=== PATIENT | male | born 1955 | race Caucasian/White ===

== ENCOUNTER 2019-06-04 11:42 | Inpatient (IN) ==
[2019-06-04] MEDS ORDERED: Ipratropium/Albuterol Neb 3 ML IH ONE (11:56)
[2019-06-04] MEDS ORDERED: methylPREDNISolone 125 MG/2 ML VIAL IVP ONE (11:56)
[2019-06-04 12:06] LABS: ABG Base Excess 10 mEq/L (-2 to 3); ABG HCO3 37 mEq/L (21-27); ABG Oxygen Saturation 90 % (95-98); ABG PCO2 61 mmHg (35-45); ABG PO2 61 mmHg (85-104); ABG TCO2 39 mEq/L (20-26)
[2019-06-04 12:32] LABS: Basophils % 0.4 %; Eosinophils # 0.4 K/mcL (0.0-0.6); Eosinophils % 5.5 %; Hematocrit 34.9 % (37.5-50.1); Hemoglobin 11.5 g/dL (12.9-16.9); Immature Granulocytes % 0.1 % (0-4); Lymphocytes # 1.9 K/mcL (0.6-4.6); Lymphocytes % 25.3 %; Mean Corpuscular Hemoglobin 32.1 pg (28.0-33.3); Mean Corpuscular Volume 97.5 fL (83.0-100.0); Mean Platelet Volume 10.1 fL (9.4-12.4); Monocytes # 0.5 K/mcL (0.0-1.3); Monocytes % 6.5 %; Neutrophils # 4.6 K/mcL (1.6-8.9); Platelet Count 234 K/mcL (140-400); Red Blood Count 3.58 M/mcL (4.19-5.50); Segmented Neutrophils % 62.2 %; White Blood Count 7.4 K/mcL (4.3-11.1)
[2019-06-04 12:56] LABS: BUN/Creatinine Ratio 9 (6-26); Blood Urea Nitrogen 6 mg/dL (8-23); Calcium 8.9 mg/dL (8.6-10.3); Carbon Dioxide 33 mEq/L (23-29); Chloride 103 mEq/L (98-107); Glucose 110 mg/dL (70-105); Osmolality,Calculated 292 (280-300); Potassium 3.5 mEq/L (3.5-5.1); Sodium 142 mEq/L (136-145); Troponin I 0.04 ng/mL (< 0.04); eGFR For African Americans > 60 (> 60); eGFR For Non-African Americans > 60 (> 60)
[2019-06-04] MEDS ORDERED: Isovue-370 500 ML BOTTLE IVP ONE (13:24)
--- NOTE | 2019-06-04 14:59 | Emergency Department Note ---
Disposition Clinical Impression: Acute exacerbation of chronic obstructive airways disease Pulmonary embolism Qualifiers: Pulmonary embolism type: unspecified Chronicity: acute Acute cor pulmonale presence: without acute cor pulmonale Qualified Code(s): I26.99 - Other pulmonary embolism without acute cor pulmonale Respiratory failure Qualifiers: Chronicity: acute Respiratory failure complication: hypoxia and hypercapnia Qualified Code(s): J96.01 - Acute respiratory failure with hypoxia; J96.02 - Acute respiratory failure with hypercapnia Disposition: Admitted As Inpatient Condition: Fair Referrals: NONE,PCP [Primary Care Provider] - Forms: ED Satisfaction Letter Time of Disposition: 15:20 SOB HPI - General Chief Complaint: ED Shortness of Breath/Dyspnea Stated Complaint: SOB Time Seen by Provider: 06/04/19 11:54 Source: patient, EMS Limitations: physical limitation - History of Present Illness This is a 63-year-old gentleman who presents with a complaint of shortness of breath. Patient is a very poor historian and is not clear how long this had trouble breathing. He has a history of COPD. Patient apparently had a procedure done within the past few days. He does not know exactly what the procedure was and what hospital it was done at. However, he was prescribed Xareltofor DVT prophylaxis. Patient has not been taking the Xarelto. He has slight cough and congestion. He denies any chest pain. Pt Subjective Complaint: shortness of breath Improves with: nothing Worsens with: nothing Known history of: COPD - Related Data Home Medications Medication Instructions Recorded Confirmed Albuterol Sulfate 2.5 mg IH Q4H PRN 06/04/19 06/04/19 Albuterol Sulfate [Proair 90 mcg IH QID PRN 06/04/19 06/04/19 Respiclick] Amitriptyline [Elavil] 75 mg PO HS 06/04/19 06/04/19 Aspirin Enteric Coated [Aspirin EC] 81 mg PO DAILY 06/04/19 06/04/19 Atorvastatin [Lipitor] 40 mg PO HS 06/04/19 06/04/19 Carvedilol [Coreg] 6.25 mg PO BIDWM 06/04/19 06/04/19 Citalopram [CeleXA] 20 mg PO DAILY 06/04/19 06/04/19 Fluticasone/Umeclidin/Vilanter 1 inh IH DAILY 06/04/19 06/04/19 [Trelegy Ellipta 100-62.5-25] Furosemide [Lasix] 20 mg PO BID 06/04/19 06/04/19 Lisinopril 2.5 mg PO DAILY 06/04/19 06/04/19 OLANZapine [Zyprexa] 10 mg PO HS 06/04/19 06/04/19 Omeprazole [PriLOSEC] 40 mg PO DAILY 06/04/19 06/04/19 Rivaroxaban [Xarelto] 1 dose PO AD 06/04/19 06/04/19 Sucralfate [Carafate] 1 gm PO BID 06/04/19 06/04/19 Allergies Allergy/AdvReac Type Severity Reaction Status Date / Time No Known Allergies Allergy Verified 08/25/18 11:07 All systems ED: reviewed and negative except as stated. Constitutional: Denies: fever Cardiovascular: Denies: chest pain, palpitations Respiratory: Reports: cough, dyspnea Gastrointestinal: Denies: abdominal pain Past Medical History - Past Medical History Medical history: Reports: COPD Surgical history: Reports: non-contributory Psychiatric history: Reports: depression - Social History Smoking Status: Current every day smoker Smokeless Tobacco Status: No Alcohol use: Reports: none Drug use: Reports: none Physical Exam - General Limitations: physical limitation General appearance: alert, in distress - Head Head exam: atraumatic, normocephalic, normal inspection - Eye Eye exam: Present: normal appearance, PERRL, EOMI - Expanded Eye Exam Pupils: Left: reactive - ENT ENT exam: normal exam, normal oropharynx, mucous membranes moist - Expanded ENT Exam External ear exam: Present: normal external inspection Mouth exam: Present: normal external inspection Teeth exam: Present: normal inspection Throat exam: Present: normal inspection - Neck Neck exam: Present: normal inspection, full ROM, trachea midline - Chest Chest inspection: Present: normal inspection, symmetric chest wall rise - Respiratory Respiratory exam: Present: respiratory distress, wheezes, accessory muscle use - Cardiovascular Cardiovascular exam: Present: regular rate, normal rhythm, normal heart sounds, other (Bilateral peripheral edema.) - Abdominal Exam Abdominal exam: Present: soft, Non-Tender. Absent: tenderness, distention, guarding, rebound, rigidity - Extremities Exam Extremities exam: Present: normal inspection, full ROM, other (Patient has some bruising in his right inguinal area suggestive of right femoral vascular access for procedure. It is unclear what procedure he had. No bruits. No bleeding.). Absent: tenderness, pedal edema - Expanded Upper Extremity Exam Shoulder exam: Present: normal inspection, full ROM Arm exam: Present: normal inspection, full ROM Elbow exam: Present: normal inspection, full ROM Forearm/Wrist exam: Present: normal inspection, full ROM Hand exam: Present: normal inspection, full ROM Vascular exam: Normal: capillary refill, radial pulse - Expanded Lower Extremity Exam Hip/Pelvis exam: Present: normal inspection, full ROM Upper leg exam: Present: normal inspection, full ROM Knee exam: Present: normal inspection, full ROM Lower leg exam: Present: normal inspection, full ROM Ankle exam: Present: normal inspection, full ROM Foot/toe exam: Present: normal inspection, full ROM Neurovascular/Tendon exam: Absent: motor deficit, sensory deficit, tendon deficit - Back Exam Back exam: Present: normal inspection, full ROM. Absent: tenderness - Neurological Exam Neurological exam: Present: alert, oriented X3 - Expanded Neurological Exam Patient oriented to: Present: person, place, time Coma Scale Eye Opening: Spontaneous Coma Scale Motor Response: Obeys Commands Coma Scale Verbal Response: Oriented Coma Scale Total: 15 - Psychiatric Psychiatric exam: Present: normal affect, normal mood - Skin Skin exam: Present: warm, dry, intact, normal color Course Vital Signs O2 Sat by Pulse Oximetry 83 06/04/19 11:44 Temperature 98.8 F 06/04/19 11:48 Pulse Rate 86 06/04/19 12:59 Respiratory Rate 20 06/04/19 12:25 Blood Pressure 139/83 06/04/19 12:59 O2 Sat by Pulse Oximetry 98 06/04/19 12:59 Oxygen Delivery Oxygen Delivery Nasal Cannula Shortness of Breath/Dyspnea - MDM Narrative Medical decision making narrative: Differential diagnosis includes pulmonary embolus versus COPD exacerbation versus pneumonia versus CHF. 1502 Patient is doing well. Once again he has not been taking Xarelto. Given bilateral pulmonary emboli, and I will start him on heparin protocol. 1520 The patient's care discussed with the hospitalist service. We will admit. - Lab Data Result diagrams: 06/04/19 12:16 06/04/19 12:16 Lab Results 06/04/19 06/04/19 06/04/19 Range/Units 12:03 12:16 12:16 WBC 7.4 (4.3-11.1) K/mcL RBC 3.58 L (4.19-5.50) M/mcL Hgb 11.5 L (12.9-16.9) g/dL Hct 34.9 L (37.5-50.1) % MCV 97.5 (83.0-100.0) fL MCH 32.1 (28.0-33.3) pg MCHC 33.0 (31.6-35.5) g/dL RDW 14.0 (11.5-14.5) % Plt Count 234 (140-400) K/mcL MPV 10.1 (9.4-12.4) fL Immature Gran % 0.1 (0-4) % Seg Neutrophils % 62.2 % Lymphocytes % 25.3 % Monocytes % 6.5 % Eosinophils % 5.5 % Basophils % 0.4 % Neutrophils # 4.6 (1.6-8.9) K/mcL Lymphocytes # 1.9 (0.6-4.6) K/mcL Monocytes # 0.5 (0.0-1.3) K/mcL Eosinophils # 0.4 (0.0-0.6) K/mcL Basophils # 0.0 (0.0-0.2) K/mcL Sample Site L Radial ABG pH 7.40 (7.32-7.45) pH Units ABG pCO2 61 H (35-45) mmHg ABG pO2 61 L (85-104) mmHg ABG HCO3 37 H (21-27) mEq/L ABG Total CO2 39 H (20-26) mEq/L ABG O2 Saturation 90 L (95-98) % ABG Base Excess 10 H (-2 to 3) mEq/L Britton Test Positive O2 Delivery Device Cannula Inspired O2 34.0 (1-15=lpm [id number]=%) Sodium 142 (136-145) mEq/L Potassium 3.5 (3.5-5.1) mEq/L Chloride 103 (98-107) mEq/L Carbon Dioxide 33 H (23-29) mEq/L BUN 6 L (8-23) mg/dL Creatinine 0.65 L (0.70-1.30) mg/dL Est GFR ( Amer) > 60 (> 60) Est GFR (Non-Af Amer) > 60 (> 60) BUN/Creatinine Ratio 9 (6-26) Glucose 110 H (70-105) mg/dL Calculated Osmolality 292 (280-300) Lactic Acid (0.5-2.2) mmol/L Calcium 8.9 (8.6-10.3) mg/dL Troponin I 0.04 H* (< 0.04) ng/mL B-Natriuretic Peptide (Less than 100) pg/mL 06/04/19 06/04/19 Range/Units 12:16 12:16 WBC (4.3-11.1) K/mcL RBC (4.19-5.50) M/mcL Hgb (12.9-16.9) g/dL Hct (37.5-50.1) % MCV (83.0-100.0) fL MCH (28.0-33.3) pg MCHC (31.6-35.5) g/dL RDW (11.5-14.5) % Plt Count (140-400) K/mcL MPV (9.4-12.4) fL Immature Gran % (0-4) % Seg Neutrophils % % Lymphocytes % % Monocytes % % Eosinophils % % Basophils % % Neutrophils # (1.6-8.9) K/mcL Lymphocytes # (0.6-4.6) K/mcL Monocytes # (0.0-1.3) K/mcL Eosinophils # (0.0-0.6) K/mcL Basophils # (0.0-0.2) K/mcL Sample Site ABG pH (7.32-7.45) pH Units ABG pCO2 (35-45) mmHg ABG pO2 (85-104) mmHg ABG HCO3 (21-27) mEq/L ABG Total CO2 (20-26) mEq/L ABG O2 Saturation (95-98) % ABG Base Excess (-2 to 3) mEq/L Britton Test O2 Delivery Device Inspired O2 (1-15=lpm [id number]=%) Sodium (136-145) mEq/L Potassium (3.5-5.1) mEq/L Chloride (98-107) mEq/L Carbon Dioxide (23-29) mEq/L BUN (8-23) mg/dL Creatinine (0.70-1.30) mg/dL Est GFR ( Amer) (> 60) Est GFR (Non-Af Amer) (> 60) BUN/Creatinine Ratio (6-26) Glucose (70-105) mg/dL Calculated Osmolality (280-300) Lactic Acid 0.8 (0.5-2.2) mmol/L Calcium (8.6-10.3) mg/dL Troponin I (< 0.04) ng/mL B-Natriuretic Peptide 335 H (Less than 100) pg/mL Critical Care Time Critical Care Time: Yes (Respiratory failure, respiratory distress, pulmonary embolus.) Total Critical Care Time: 60 Attestation: Critical care time is for evaluation and management of this patient's critical illness.
[2019-06-04] MEDS ORDERED: *HR* Heparin 5,000 UNIT/ML VIAL IVP ONE (15:24)
[2019-06-04] MEDS ORDERED: *HR* Heparin 5,000 UNIT/ML VIAL IVP PRN ×2 (15:24)
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
[2019-06-04 16:31] LABS: Hematocrit 38.7 % (37.5-50.1); Mean Corpuscular HGB Conc 33.6 g/dL (31.6-35.5); Mean Corpuscular Hemoglobin 32.8 pg (28.0-33.3); Mean Corpuscular Volume 97.7 fL (83.0-100.0); Mean Platelet Volume 10.2 fL (9.4-12.4); Platelet Count 238 K/mcL (140-400); Red Blood Count 3.96 M/mcL (4.19-5.50); White Blood Count 6.7 K/mcL (4.3-11.1)
[2019-06-04] MEDS ORDERED: Naloxone 0.4 MG/ML INJ IVP PRN (16:33)
[2019-06-04 16:55] LABS: Heparin anti-factor XA UFH 0.13 IU/mL (0.30-0.70)
[2019-06-04 16:56] LABS: INR 1.2; Prothrombin Time 13.7 Seconds (9.4-12.1)
[2019-06-04] MEDS: Heparin 25,000 UNIT/250 ML D5W 25,000 UNIT/250 ML IV.SOLN IVC SCH (17:27)
[2019-06-04] MEDS: Sucralfate 1 GM TABLET PO SCH (21:48)
[2019-06-04] MEDS: OLANZapine 10 MG TAB.RAPDIS PO SCH (21:48)
[2019-06-04] MEDS ORDERED: Perflutren Lipid Microsphere 1.3 ML in 0.9 % Sodium Chloride 8.7 ML IVP ONE (22:29)
--- NOTE | 2019-06-05 07:26 | Internal Med Progress Note ---
Hospitalist Progress Note - Encounter Date of Encounter: 06/05/19 Time of Encounter: 07:26 - Subjective Interval History: Patient seen and examined this morning at bedside. No acute overnight events. Denies new complaints. Denies any difficulty breathing chest pain abdominal pain. However nurse mention he is very short of breath. Was on BiPAP overn ight. - Exam Vitals: Temp Pulse Resp BP Pulse Ox 97.4 F L 73 17 144/80 94 06/05/19 07:08 06/05/19 07:08 06/05/19 07:08 06/05/19 07:08 06/05/19 07:08 Exam: Constitutional: Vitals as noted. Conversant. No Apparent Distress. obese Respiratory : Clear to auscultation bilaterally. no accessory muscle use. no rales, rhonchi or wheezes Cardiovascular : RRR, +S1, +S2. no murmur, gallop, rubs. No chest wall tenderness GI/Abdominal : Soft, obese, normal bowel sounds, no peritoneal signs. no orgenomegaly or mass appreciated. no hernia. Musculoskeletal: 1 + b/l pedal edema, warm extremities, pulses palpable and symmetrical in UE/LE. no calf tenderness. Neurological: AO X2, CN II-XII grossly intact, grossly normal motor and sensory exam Skin: many tattoos including on abdomen.Mild ecchymosis on Rt groin Pych: poor memory and judgement - Assessment and Plan (1) Respiratory failure Current Visit: Yes Status: Acute (2) COPD (chronic obstructive pulmonary disease) Current Visit: Yes Status: Acute (3) Esophageal ulcer Current Visit: Yes Status: Chronic (4) Pulmonary HTN Current Visit: Yes Status: Acute (5) Sleep apnea Current Visit: Yes Status: Acute (6) Diabetes Current Visit: Yes Status: Acute (7) HTN (hypertension) Current Visit: Yes Status: Acute (8) Pulmonary embolism Current Visit: Yes Status: Acute (9) Goals of care, counseling/discussion Current Visit: Yes Status: Acute - Summary of Assessment and Plan Summary of Assessment and Plan: Assessment Acute Acute hypoxic and hypercapnic respiratory failure bilateral PE Chronic h/o esophageal ulcer DM RADHA COPD HTN Obesity Developmental delay Heavy smoker Plan - Patient with acute hypoxemic hypercapnic respiratory failure likely secondary to PE and underlying COPD and pulm HTN. CT with bilateral lower lobe PE with multi chamber cardiac enlargement and no findings suggest to of right ventricular strain. c/w heparin drip. Has history of esophageal and gastric ulcer and slightly increase risk of bleeding. We will obtain stool occult blood. Patient was started on xarelto on his discharge from [facility] but had not started it. We will obtain records from [facility] to see exactly what procedure he had. Based on description from Mr. Melton he appeared to have Catheter directed thrombolysis for PE through Rt groin per discussion however is not confirmed and needs clarification. no strain pattern noticed on CT scan. EKG did show some ST depression in lateral leads with right bundle branch block pattern. troponin now negative. continue heparin drip. We will consider cardiology consult depending on ECHO results and based on records from [facility] c/w BiPAP as needed and at night. Resume home lasix. Obtain abg. - Esophageal ulcer. c/w home home PPI and sucralfate. obtain stool occult blood - Sleep apnea: c/w bipap at night and prn - Diabetes: Hold home oral hypoglycemics. c/w SSI and Accu-Cheks. - HTN: Hold home antihypertensives for now given PE. We will resume depending on clinical course. - Goals of care, counseling/discussion: Full code per discussion with Mr. Melton(from [facility] [employer] [facility]). However for significant critical questions he wanted us to talk to Zelalem Barnett([phone]) - Time Spent with Patient Total time spent is greater than 50% in coordination of care (as documented) at patient's floor/unit and/or counseling patient: Internal Medicine: Result - Labs CBC & Chem 7: 06/04/19 16:17 06/04/19 12:16 Labs: Short CBC 06/04/19 06/04/19 Range/Units 12:16 16:17 WBC 7.4 6.7 (4.3-11.1) K/mcL Hgb 11.5 L 13.0 D (12.9-16.9) g/dL Hct 34.9 L 38.7 (37.5-50.1) % Plt Count 234 238 (140-400) K/mcL Neutrophils # 4.6 (1.6-8.9) K/mcL BMP 06/04/19 12:16 Sodium 142 Potassium 3.5 Chloride 103 Carbon Dioxide 33 H BUN 6 L Creatinine 0.65 L Glucose 110 H Calcium 8.9 Cardiac Enzymes 06/04/19 06/04/19 06/04/19 Range/Units 12:16 17:40 21:13 Troponin I 0.04 H* 0.04 H* 0.03 (< 0.04) ng/mL - ABG Interpretation ABG results: ABG ABG pH 7.40 pH Units (7.32-7.45) 06/04/19 12:03 ABG pCO2 61 mmHg (35-45) H 06/04/19 12:03 ABG pO2 61 mmHg (85-104) L 06/04/19 12:03 ABG O2 Saturation 90 % (95-98) L 06/04/19 12:03 PT/INR, D-dimer PT 13.7 Seconds (9.4-12.1) H 06/04/19 16:25 - Impressions Impressions Chest X-Ray 06/04/19 11:56 IMPRESSION: COPD with bibasilar interstitial lung disease. D/ / 06/04/2019 12:47:26 Leodan Lebron MD / gauri Interpreting Provider: Leodan Lebron MD Chest CTA 06/04/19 13:24 IMPRESSION: Bilateral lower lobe pulmonary emboli with multichamber cardiac enlargement but no findings to suggest right ventricular strain. This finding was discussed with Carlos Bradshaw on 06/04/2019 at 1445 hours. COPD with superimposed interstitial lung disease D/ /04/2019 14:55:39 Leodan Lebron MD / earann marie Interpreting Provider: Leodan Lebron MD Consult Discharge Plan - Plan Referrals: NONE,PCP [Primary Care Provider] - (1) Respiratory failure Qualifiers: Chronicity: acute Respiratory failure complication: hypoxia and hypercapnia Qualified Code(s): J96.01 - Acute respiratory failure with hypoxia; J96.02 - Acute respiratory failure with hypercapnia (2) COPD (chronic obstructive pulmonary disease) Qualifiers: COPD type: unspecified COPD Qualified Code(s): J44.9 - Chronic obstructive pulmonary disease, unspecified (3) Esophageal ulcer Qualifiers: Esophageal ulcer bleeding: without bleeding Qualified Code(s): K22.10 - Ulcer of esophagus without bleeding (5) Sleep apnea Qualifiers: Sleep apnea type: unspecified type Qualified Code(s): G47.30 - Sleep apnea, unspecified (6) Diabetes Qualifiers: Diabetes mellitus type: type 2 Diabetes mellitus half-way insulin use: without half-way use Diabetes mellitus complication status: without complication Qualified Code(s): E11.9 - Type 2 diabetes mellitus without complications (7) HTN (hypertension) Qualifiers: Hypertension type: essential hypertension Qualified Code(s): I10 - Essential (primary) hypertension (8) Pulmonary embolism Qualifiers: Pulmonary embolism type: other Chronicity: acute Acute cor pulmonale presence: without acute cor pulmonale Qualified Code(s): I26.99 - Other pulmonary embolism without acute cor pulmonale
[2019-06-05 10:20] LABS: ABG Base Excess 9 mEq/L (-2 to 3); ABG HCO3 37 mEq/L (21-27); ABG Oxygen Saturation 98 % (95-98); ABG PCO2 64 mmHg (35-45); ABG PH 7.37 pH Units (7.32-7.45); ABG PO2 103 mmHg (85-104); ABG TCO2 39 mEq/L (20-26)
[2019-06-05] MEDS: Heparin 25,000 UNIT/250 ML D5W 25,000 UNIT/250 ML IV.SOLN IVC SCH ×2 (10:27→21:34)
[2019-06-05] MEDS: Furosemide 20 MG TABLET PO SCH ×2 (10:28→17:44)
[2019-06-05] MEDS: Sucralfate 1 GM TABLET PO SCH ×2 (10:28→21:39)
[2019-06-05] MEDS: Aspirin Enteric Coated 81 MG Tablet PO SCH (10:28)
[2019-06-05] MEDS: OLANZapine 10 MG TAB.RAPDIS PO SCH (21:40)
[2019-06-06] MEDS: Aspirin Enteric Coated 81 MG Tablet PO SCH (07:44)
[2019-06-06] MEDS: Sucralfate 1 GM TABLET PO SCH (07:44)
[2019-06-06] MEDS: Furosemide 20 MG TABLET PO SCH (07:45)
[2019-06-06 07:56] VITALS: BP 110/71
--- NOTE | 2019-06-06 09:25 | Discharge Summary ---
- NOTES TO OUTPATIENT PROVIDER Notes to Outpatient Provider: Follow-up with PCP as outpatient. Compliance to Xarelto emphasized Orders not resulted at time of discharge: Pending orders 06/04/19 12:16 Culture,Blood [BC] Stat 06/04/19 17:07 Occult Blood,Stool [BF] Routine Date of Encounter: 06/06/19 Time of Encounter: 07:30 - Discharge Diagnosis (1) Respiratory failure Priority: Primary Status: Acute Qualifiers: Chronicity: acute Respiratory failure complication: hypoxia and hypercapnia Qualified Code(s): J96.01 - Acute respiratory failure with hypoxia; J96.02 - Acute respiratory failure with hypercapnia (2) Pulmonary embolism Priority: Secondary Status: Acute Qualifiers: Pulmonary embolism type: other Chronicity: acute Acute cor pulmonale presence: without acute cor pulmonale Qualified Code(s): I26.99 - Other pulmonary embolism without acute cor pulmonale (3) COPD (chronic obstructive pulmonary disease) Priority: Secondary Status: Acute Qualifiers: COPD type: unspecified COPD Qualified Code(s): J44.9 - Chronic obstructive pulmonary disease, unspecified (4) Esophageal ulcer Priority: Secondary Status: Chronic Qualifiers: Esophageal ulcer bleeding: without bleeding Qualified Code(s): K22.10 - Ulcer of esophagus without bleeding (5) Pulmonary HTN Priority: Secondary Status: Acute (6) Sleep apnea Priority: Secondary Status: Acute Qualifiers: Sleep apnea type: unspecified type Qualified Code(s): G47.30 - Sleep apnea, unspecified (7) Diabetes Priority: Secondary Status: Acute Qualifiers: Diabetes mellitus type: type 2 Diabetes mellitus intermediate card tender insulin use: without skilled nursing use Diabetes mellitus complication status: without complication Qualified Code(s): E11.9 - Type 2 diabetes mellitus without complications (8) HTN (hypertension) Priority: Secondary Status: Acute Qualifiers: Hypertension type: essential hypertension Qualified Code(s): I10 - Essential (primary) hypertension (9) Goals of care, counseling/discussion Priority: Secondary Status: Acute Hospital course: Mr. Lilly is a 63 year old male with history of oxygen dependent COPD, obesity with RADHA, DM, esophageal ulcer, schizophrenia, developmental delay, who was admitted for acute on chronic hypoxic/hypercarbic respiratory failure secondary to PE. Of note, he was presumably diagnosed with PE at the OSH recently and was discharged on Xarelto which he never filled. Clinically improved with hep gtt and brief period of BiPaP. No evidence of R heart strain on echo. His oxygen was titrated down to his baseline level of 4-5L via NC and after ensuring the availability of Xarelto at home, he was discharged in stable condition. Discharge discussed with: patient, nurse, social work - Time Spent with Patient Total time spent providing and/or coordinating discharge services: 32 mins - Discharge Medications Prescriptions: Continued Omeprazole [PriLOSEC] 40 mg PO DAILY OLANZapine [Zyprexa] 10 mg PO HS Lisinopril 2.5 mg PO DAILY Furosemide [Lasix] 20 mg PO BID Fluticasone/Umeclidin/Vilanter [Trelegy Ellipta 100-62.5-25] 1 inh IH DAILY Citalopram [CeleXA] 20 mg PO DAILY Carvedilol [Coreg] 6.25 mg PO BIDWM Atorvastatin [Lipitor] 40 mg PO HS Aspirin Enteric Coated [Aspirin EC] 81 mg PO DAILY Amitriptyline [Elavil] 75 mg PO HS Albuterol Sulfate [Proair Respiclick] 90 mcg IH QID PRN PRN Reason: Shortness Of Breath/Wheezing Albuterol Sulfate 2.5 mg IH Q4H PRN PRN Reason: Wheezing Sucralfate [Carafate] 1 gm PO BID Rivaroxaban [Xarelto] 1 dose PO AD #90 Home Medications: Albuterol Sulfate 2.5 mg IH Q4H PRN 06/04/19 [History] Albuterol Sulfate [Proair Respiclick] 90 mcg IH QID PRN 06/04/19 [History] Amitriptyline [Elavil] 75 mg PO HS 06/04/19 [History] Aspirin Enteric Coated [Aspirin EC] 81 mg PO DAILY 06/04/19 [History] Atorvastatin [Lipitor] 40 mg PO HS 06/04/19 [History] Carvedilol [Coreg] 6.25 mg PO BIDWM 06/04/19 [History] Citalopram [CeleXA] 20 mg PO DAILY 06/04/19 [History] Fluticasone/Umeclidin/Vilanter [Trelegy Ellipta 100-62.5-25] 1 inh IH DAILY 06/04/19 [History] Furosemide [Lasix] 20 mg PO BID 06/04/19 [History] Lisinopril 2.5 mg PO DAILY 06/04/19 [History] OLANZapine [Zyprexa] 10 mg PO HS 06/04/19 [History] Omeprazole [PriLOSEC] 40 mg PO DAILY 06/04/19 [History] Sucralfate [Carafate] 1 gm PO BID 06/04/19 [History] Rivaroxaban [Xarelto] 1 dose PO AD #90 06/06/19 [Rx] Allergies/Adverse Reactions: Allergy/AdvReac Type Severity Reaction Status Date / Time No Known Allergies Allergy Verified 08/25/18 11:07 Date of admission: 06/05/19 10:04 Primary care physician: PCP NONE Consults: 06/05/19 07:41 Consult to Blow Off Worker [CONS] Routine Reason for SW Consult: Patient is developmentally delayed, alert to self only, lives at home independently, possibly need resources? - Constitutional Vitals: Temp Pulse Resp BP Pulse Ox 97.7 F 68 18 110/71 97 06/06/19 07:55 06/06/19 07:55 06/06/19 07:55 06/06/19 07:55 06/06/19 07:55 Exam: Constitutional: Vitals as noted. Conversant. No Apparent Distress. obese Respiratory : Clear to auscultation bilaterally. No rales, rhonchi or wheezes Cardiovascular : RRR, +S1, +S2. GI/Abdominal : Soft, non-tender Musculoskeletal: 1 + b/l pedal edema, no joint effusion Neurological: AO X2, no focal deficits - Patient Status Disposition: Home, Self-Care Condition: Fair Functional capacity at discharge: independent ambulation Overall status at discharge: patient is progressing back to baseline - Discharge Instructions Instructions: Diabetes Mellitus Type 2 in Adults (DC), Chronic Obstructive Pulmonary Disease (DC), Chronic Hypertension (DC), Pulmonary Embolism (DC) Follow Up With: NONE,PCP [Primary Care Provider] - - Diet and Activity Activity: resume usual activities as tolerated Diet: low salt diet
[2019-06-06] MEDS ORDERED: FLU Vac QV 19-20 (6Month+)/PF 0.5 ML SYRINGE IM ONE (09:48)
[2019-06-06] MEDS ORDERED: *HR* Rivaroxaban 15 MG TABLET PO SCH (12:00)
--- NOTE | 2019-06-07 12:20 | Electrocardiograph Report ---
[place] [id number] Test Date: 2019-06-04 Pat Name: Mayte Lilly Department: EXAM6 Room: 2A42 Gender: M Betting Clerk: : 1955 Requested By: Carlos Bradshaw Order Number: [id number] Reading MD: Jose Velasquez Measurements Intervals [place] Rate: 83 P: 53 NV: 140 QRS: 36 QRSD: 114 T: 31 QT: 413 QTc: 486 Interpretive Statements Sinus rhythm Incomplete right bundle branch block Borderline prolonged QT interval Electronically Signed On 06-07-2019 12:18:41 EDT by Jose Velasquez
== END 2019-06-06 12:44 | disposition home or self-care (01) | DRG 134 ==
LOC: 2ANU 11:42 → EMEROOARM 11:42 → SUATTDRO 16:31 → 2ANU 18:16 → SUATTDRO 06-05 10:04
PROVIDERS: ADMIT Internal Medicine; ATTEND Internal Medicine

== ENCOUNTER 2019-07-31 13:49 | Observation (INO) ==
[2019-07-31 14:32] LABS: Basophils # 0.1 K/mcL (0.0-0.2); Basophils % 0.8 %; Eosinophils # 0.3 K/mcL (0.0-0.6); Eosinophils % 3.7 %; Hemoglobin 14.5 g/dL (12.9-16.9); Immature Granulocytes % 0.3 % (0-4); Lymphocytes # 3.6 K/mcL (0.6-4.6); Lymphocytes % 39.1 %; Mean Corpuscular HGB Conc 35.4 g/dL (31.6-35.5); Mean Corpuscular Hemoglobin 32.7 pg (28.0-33.3); Mean Corpuscular Volume 92.3 fL (83.0-100.0); Mean Platelet Volume 9.4 fL (9.4-12.4); Monocytes # 0.6 K/mcL (0.0-1.3); Monocytes % 6.2 %; Neutrophils # 4.6 K/mcL (1.6-8.9); Platelet Count 333 K/mcL (140-400); Red Blood Count 4.44 M/mcL (4.19-5.50); Red Cell Distribution Width 12.6 % (11.5-14.5); Segmented Neutrophils % 49.9 %; White Blood Count 9.2 K/mcL (4.3-11.1)
[2019-07-31] MEDS ORDERED: cefTRIAXone 1,000 MG in Water for inj. (sterile) 10 ML IVP ONE (14:35)
[2019-07-31] MEDS ORDERED: Azithromycin 500 MG in 0.9 % Sodium Chloride 250 ML IVPB ONE (14:35)
[2019-07-31 14:36] LABS: Prothrombin Time 11.6 Seconds (9.4-12.1)
[2019-07-31 14:36] LABS: VBG HCO3 32 mEq/L (21-27); VBG PCO2 48 mmHg (41-51); VBG PH 7.42 pH Units (7.32-7.42); VBG PO2 48 mmHg (25-50)
[2019-07-31 14:38] LABS: Activated Partial Thrombo Time 30.9 Seconds (26.0-36.0)
[2019-07-31 14:54] LABS: Alanine Aminotransferase 16 Units/L (7-52); Albumin/Globulin Ratio 1.1 (1.1-2.2); Alkaline Phosphatase 83 Units/L (34-104); Aspartate Amino Transferase 15 Units/L (13-39); BUN/Creatinine Ratio 18 (6-26); Bilirubin,Direct 0.2 mg/dL (0.0-0.2); Bilirubin,Indirect 0.4 mg/dL (0.0-1.0); Bilirubin,Total 0.6 mg/dL (0.3-1.0); Blood Urea Nitrogen 17 mg/dL (8-23); Calcium 9.7 mg/dL (8.6-10.3); Carbon Dioxide 30 mEq/L (23-29); Chloride 98 mEq/L (98-107); Globulin 3.5 g/dL (2.4-3.5); Glucose 126 mg/dL (70-105); Osmolality,Calculated 291 (280-300); Potassium 3.5 mEq/L (3.5-5.1); Sodium 139 mEq/L (136-145); Total Protein 7.5 g/dL (6.4-8.9); Troponin I < 0.03 ng/mL (< 0.04); eGFR For African Americans > 60 (> 60); eGFR For Non-African Americans > 60 (> 60)
[2019-07-31] MEDS ORDERED: *HR* LORazepam 2 MG/ML VIAL IVP ONE (15:09)
[2019-07-31] MEDS ORDERED: 0.9 % Sodium Chloride 500 ML IVC ONE (15:22)
[2019-07-31] MEDS ORDERED: Ondansetron 4 MG/2 ML VIAL IVP PRN (15:56)
[2019-07-31] MEDS ORDERED: Naloxone 0.4 MG/ML INJ IVP PRN (15:56)
[2019-07-31] MEDS ORDERED: Isovue-370 500 ML BOTTLE IVP ONE (16:10)
[2019-07-31] MEDS: Ipratropium/Albuterol Neb 3 ML IH SCH ×2 (17:02→20:37)
[2019-07-31] MEDS ORDERED: *HR* Heparin 5,000 UNIT/ML VIAL IVP ONE (17:34)
[2019-07-31] MEDS ORDERED: *HR* Heparin 5,000 UNIT/ML VIAL IVP PRN ×2 (17:34)
[2019-07-31] MEDS: MethylPREDNISolone 40 MG/ML VIAL IVP SCH ×2 (18:36)
[2019-07-31 18:39] LABS: INR 1.1; Prothrombin Time 12.1 Seconds (9.4-12.1)
[2019-07-31] MEDS: Heparin 25,000 UNIT/250 ML D5W 25,000 UNIT/250 ML IV.SOLN IVC SCH (22:06)
[2019-07-31] MEDS: OLANZapine 10 MG TAB.RAPDIS PO SCH (22:14)
[2019-08-01] MEDS: Piperacillin/Tazobactam 3.375 GM in 0.9 % Sodium Chloride Mini Bag 100 ML IVPB SCH ×3 (00:33→17:11)
[2019-08-01] MEDS: Ipratropium/Albuterol Neb 3 ML IH SCH ×7 (01:07→23:15)
[2019-08-01 05:12] LABS: Basophils % 0.2 %; Hematocrit 42.4 % (37.5-50.1); Hemoglobin 14.2 g/dL (12.9-16.9); Immature Granulocytes % 0.4 % (0-4); Lymphocytes # 0.9 K/mcL (0.6-4.6); Lymphocytes % 17.4 %; Mean Corpuscular HGB Conc 33.5 g/dL (31.6-35.5); Mean Corpuscular Hemoglobin 32.5 pg (28.0-33.3); Mean Platelet Volume 9.5 fL (9.4-12.4); Monocytes % 0.4 %; Neutrophils # 4.1 K/mcL (1.6-8.9); Platelet Count 308 K/mcL (140-400); Red Blood Count 4.37 M/mcL (4.19-5.50); Red Cell Distribution Width 12.5 % (11.5-14.5); Segmented Neutrophils % 81.6 %; White Blood Count 5.1 K/mcL (4.3-11.1)
[2019-08-01] MEDS: MethylPREDNISolone 40 MG/ML VIAL IVP SCH ×2 (06:40→17:12)
[2019-08-01] MEDS: UMECLIDIN IH SCH (07:40)
[2019-08-01] MEDS: VILANTER IH SCH (07:40)
[2019-08-01] MEDS: FLUTICASONE IH SCH (07:40)
[2019-08-01 08:15] LABS: BUN/Creatinine Ratio 17 (6-26); Blood Urea Nitrogen 13 mg/dL (8-23); Calcium 9.5 mg/dL (8.6-10.3); Carbon Dioxide 28 mEq/L (23-29); Chloride 101 mEq/L (98-107); Glucose 183 mg/dL (70-105); Magnesium 1.6 mg/dL (1.6-2.6); Osmolality,Calculated 289 (280-300); Potassium 4.4 mEq/L (3.5-5.1); Sodium 137 mEq/L (136-145); eGFR For African Americans > 60 (> 60); eGFR For Non-African Americans > 60 (> 60)
[2019-08-01] MEDS: Sucralfate 1 GM TABLET PO SCH ×2 (08:36→17:11)
[2019-08-01] MEDS: Aspirin Enteric Coated 81 MG Tablet PO SCH (08:36)
[2019-08-01] MEDS ORDERED: Azithromycin 500 MG in 0.9 % Sodium Chloride 250 ML IVPB SCH (09:00)
[2019-08-01] MEDS: Heparin 25,000 UNIT/250 ML D5W 25,000 UNIT/250 ML IV.SOLN IVC SCH (12:56)
[2019-08-01] MEDS ORDERED: ALPRAZolam 0.5 MG TABLET PO PRN (13:12)
[2019-08-01] MEDS ORDERED: *HR* Rivaroxaban 10 MG TABLET PO SCH (17:00)
[2019-08-01] MEDS: OLANZapine 10 MG TAB.RAPDIS PO SCH (20:59)
[2019-08-02] MEDS: Piperacillin/Tazobactam 3.375 GM in 0.9 % Sodium Chloride Mini Bag 100 ML IVPB SCH ×2 (01:09→09:26)
[2019-08-02] MEDS: Ipratropium/Albuterol Neb 3 ML IH SCH ×3 (03:42→11:01)
[2019-08-02] MEDS: MethylPREDNISolone 40 MG/ML VIAL IVP SCH (06:17)
[2019-08-02] MEDS: UMECLIDIN IH SCH (07:18)
[2019-08-02] MEDS: VILANTER IH SCH (07:18)
[2019-08-02] MEDS: FLUTICASONE IH SCH (07:18)
[2019-08-02 07:21] VITALS: BP 121/73
[2019-08-02] MEDS: Aspirin Enteric Coated 81 MG Tablet PO SCH (09:26)
[2019-08-02] MEDS: Sucralfate 1 GM TABLET PO SCH (09:26)
== END 2019-08-02 13:21 | disposition home or self-care (01) ==
LOC: EMEROOARM 13:49 → 3BNU 13:49 → SUATTDRO 15:54 → 2NENU 16:09
PROVIDERS: ADMIT Student in an Organized Health Care Education/Training Program; ATTEND Internal Medicine

== ENCOUNTER 2020-01-15 13:30 | Observation (INO) ==
[2020-01-15] MEDS ORDERED: methylPREDNISolone 125 MG/2 ML VIAL IVP ONE (14:07)
[2020-01-15] MEDS ORDERED: cefTRIAXone 1,000 MG in Water for inj. (sterile) 10 ML IVP ONE (14:24)
[2020-01-15] MEDS ORDERED: Azithromycin 500 MG in D5% in Water 250 ML IVPB ONE (14:24)
[2020-01-15 14:33] LABS: Basophils % 0.6 %; Eosinophils # 0.3 K/mcL (0.0-0.6); Eosinophils % 4.2 %; Hematocrit 44.7 % (37.5-50.1); Hemoglobin 14.7 g/dL (12.9-16.9); Immature Granulocytes % 0.3 % (0-4); Lymphocytes # 2.8 K/mcL (0.6-4.6); Lymphocytes % 45.9 %; Mean Corpuscular HGB Conc 32.9 g/dL (31.6-35.5); Mean Corpuscular Hemoglobin 30.8 pg (28.0-33.3); Mean Corpuscular Volume 93.7 fL (83.0-100.0); Mean Platelet Volume 9.4 fL (9.4-12.4); Monocytes # 0.6 K/mcL (0.0-1.3); Monocytes % 9.1 %; Neutrophils # 2.5 K/mcL (1.6-8.9); Platelet Count 272 K/mcL (140-400); Red Blood Count 4.77 M/mcL (4.19-5.50); Red Cell Distribution Width 12.4 % (11.5-14.5); Segmented Neutrophils % 39.9 %; White Blood Count 6.2 K/mcL (4.3-11.1)
[2020-01-15 14:39] LABS: Prothrombin Time 11.3 Seconds (9.4-12.1)
[2020-01-15 14:42] LABS: Activated Partial Thrombo Time 30.6 Seconds (26.0-36.0)
[2020-01-15 14:56] LABS: Alanine Aminotransferase 17 Units/L (7-52); Albumin 4.4 g/dL (3.5-5.7); Albumin/Globulin Ratio 1.3 (1.1-2.2); Alkaline Phosphatase 86 Units/L (34-104); Aspartate Amino Transferase 17 Units/L (13-39); BUN/Creatinine Ratio 14 (6-26); Bilirubin,Direct 0.1 mg/dL (0.0-0.2); Bilirubin,Indirect 0.3 mg/dL (0.0-1.0); Bilirubin,Total 0.4 mg/dL (0.3-1.0); Blood Urea Nitrogen 14 mg/dL (8-23); Carbon Dioxide 33 mEq/L (23-29); Chloride 99 mEq/L (98-107); Globulin 3.5 g/dL (2.4-3.5); Glucose 119 mg/dL (70-105); Osmolality,Calculated 286 (280-300); Potassium 3.9 mEq/L (3.5-5.1); Sodium 137 mEq/L (136-145); Total Protein 7.9 g/dL (6.4-8.9); Troponin I < 0.03 ng/mL (< 0.04); eGFR For African Americans > 60 (> 60); eGFR For Non-African Americans > 60 (> 60)
[2020-01-15] MEDS ORDERED: MOM Conc 10 ML UD.LIQ PO PRN (17:28)
[2020-01-15] MEDS ORDERED: Naloxone 0.4 MG/ML INJ IVP PRN (17:28)
[2020-01-15] MEDS ORDERED: Acetaminophen 325 MG TABLET PO PRN (17:28)
[2020-01-15] MEDS ORDERED: Mag Hydrox/Al Hydrox/Simeth 30 ML UDC PO PRN (17:28)
[2020-01-15] MEDS ORDERED: Ondansetron 4 MG/2 ML VIAL IVP PRN (17:28)
[2020-01-15] MEDS ORDERED: NON-FORMULARY MEDICATION 1 EACH EACH (Atorvastatin Calcium [Lipitor] 20 MG) PO SCH (21:00)
[2020-01-15] MEDS: Sucralfate 1 GM TABLET PO SCH (22:23)
[2020-01-15] MEDS: predniSONE 20 MG TABLET PO SCH (22:23)
[2020-01-16 06:32] VITALS: BP 120/81
[2020-01-16 07:42] LABS: Hematocrit 43.3 % (37.5-50.1); Hemoglobin 14.7 g/dL (12.9-16.9); Mean Corpuscular HGB Conc 33.9 g/dL (31.6-35.5); Mean Corpuscular Hemoglobin 31.2 pg (28.0-33.3); Mean Corpuscular Volume 91.9 fL (83.0-100.0); Mean Platelet Volume 9.5 fL (9.4-12.4); Platelet Count 274 K/mcL (140-400); Red Blood Count 4.71 M/mcL (4.19-5.50); Red Cell Distribution Width 12.4 % (11.5-14.5)
[2020-01-16 07:44] LABS: White Blood Count 9.4 K/mcL (4.3-11.1)
[2020-01-16] MEDS ORDERED: carvediloL 6.25 MG TABLET PO SCH (08:00)
[2020-01-16] MEDS: Sucralfate 1 GM TABLET PO SCH (08:18)
[2020-01-16] MEDS: predniSONE 20 MG TABLET PO SCH (08:18)
[2020-01-16] MEDS ORDERED: Azithromycin 250 MG TABLET PO SCH (09:00)
[2020-01-16] MEDS ORDERED: Aspirin Enteric Coated 81 MG Tablet PO SCH (09:00)
[2020-01-16] MEDS ORDERED: Furosemide 20 MG TABLET PO SCH (09:00)
[2020-01-16 09:19] LABS: BUN/Creatinine Ratio 16 (6-26); Blood Urea Nitrogen 15 mg/dL (8-23); Carbon Dioxide 31 mEq/L (23-29); Chloride 99 mEq/L (98-107); Glucose 164 mg/dL (70-105); Magnesium 1.8 mg/dL (1.6-2.6); Osmolality,Calculated 286 (280-300); Potassium 4.7 mEq/L (3.5-5.1); Sodium 136 mEq/L (136-145); eGFR For African Americans > 60 (> 60); eGFR For Non-African Americans > 60 (> 60)
[2020-01-16] MEDS ORDERED: *HR* LORazepam 2 MG/ML VIAL IVP PRN (09:57)
[2020-01-16] MEDS ORDERED: Budesonide/Formoterol 160/4.5 1 PUFF INH IH SCH (10:00)
[2020-01-16] MEDS ORDERED: Tiotropium 18 MCG inhalation IH SCH (10:15)
[2020-01-16] MEDS ORDERED: cefTRIAXone 2,000 MG in Water for inj. (sterile) 20 ML IVP SCH (11:00)
[2020-01-17] MEDS ORDERED: *HR* Enoxaparin 40 MG/0.4 ML SYRINGE SQ SCH (06:00)
== END 2020-01-16 14:15 | disposition left against medical advice (07) ==
LOC: EMEROOARM 13:30 → 2NENU 13:30
PROVIDERS: ADMIT Internal Medicine; ATTEND Internal Medicine

== ENCOUNTER 2020-01-19 15:36 | Observation (INO) ==
[2020-01-19] MEDS ORDERED: Azithromycin 500 MG in 0.9 % Sodium Chloride 250 ML IVPB ONE (16:34)
[2020-01-19] MEDS ORDERED: Piperacillin/Tazobactam 3.375 GM in Water for inj. (sterile) 20 ML IVP ONE (16:34)
[2020-01-19] MEDS ORDERED: Isovue-370 500 ML BOTTLE IVP ONE (16:37)
[2020-01-19 17:03] LABS: Basophils % 0.3 %; Eosinophils % 0.1 %; Hemoglobin 14.3 g/dL (12.9-16.9); Immature Granulocytes % 0.9 % (0-4); Lymphocytes # 1.1 K/mcL (0.6-4.6); Mean Corpuscular Hemoglobin 31.2 pg (28.0-33.3); Mean Corpuscular Volume 91.7 fL (83.0-100.0); Mean Platelet Volume 9.2 fL (9.4-12.4); Monocytes # 0.4 K/mcL (0.0-1.3); Monocytes % 4.4 %; Neutrophils # 6.3 K/mcL (1.6-8.9); Platelet Count 319 K/mcL (140-400); Prothrombin Time 11.1 Seconds (9.4-12.1); Red Blood Count 4.58 M/mcL (4.19-5.50); Red Cell Distribution Width 12.5 % (11.5-14.5); Segmented Neutrophils % 80.3 %; White Blood Count 7.9 K/mcL (4.3-11.1)
[2020-01-19 17:06] LABS: Activated Partial Thrombo Time 25.1 Seconds (26.0-36.0)
[2020-01-19 17:10] LABS: Alanine Aminotransferase 20 Units/L (7-52); Albumin/Globulin Ratio 1.3 (1.1-2.2); Alkaline Phosphatase 73 Units/L (34-104); Aspartate Amino Transferase 12 Units/L (13-39); BUN/Creatinine Ratio 23 (6-26); Bilirubin,Direct 0.1 mg/dL (0.0-0.2); Bilirubin,Indirect 0.3 mg/dL (0.0-1.0); Bilirubin,Total 0.4 mg/dL (0.3-1.0); Blood Urea Nitrogen 20 mg/dL (8-23); C-Reactive Protein < 5 mg/L (Less than 10); Calcium 9.7 mg/dL (8.6-10.3); Carbon Dioxide 29 mEq/L (23-29); Chloride 98 mEq/L (98-107); Globulin 3.1 g/dL (2.4-3.5); Glucose 318 mg/dL (70-105); Lactate Dehydrogenase 177 Units/L (140-271); Lipase 34 Units/L (11-82); Magnesium 1.6 mg/dL (1.6-2.6); Osmolality,Calculated 293 (280-300); Phosphorous 2.2 mg/dL (2.7-4.5); Potassium 4.3 mEq/L (3.5-5.1); Sodium 134 mEq/L (136-145); Total Protein 7.1 g/dL (6.4-8.9); Troponin I < 0.03 ng/mL (< 0.04); eGFR For African Americans > 60 (> 60); eGFR For Non-African Americans > 60 (> 60)
[2020-01-19 17:28] LABS: Ferritin 120 ng/mL (20-250)
[2020-01-19] MEDS ORDERED: Nicotine 2 MG GUM BC PRN (21:15)
[2020-01-19] MEDS ORDERED: Albuterol 2.5 MG/3 ML NEBULIZER IH PRN (21:15)
[2020-01-19] MEDS ORDERED: Naloxone 0.4 MG/ML INJ IVP PRN (21:15)
[2020-01-19] MEDS: Ipratropium Neb 0.5 MG NEBULIZER IH SCH ×2 (21:59→22:08)
[2020-01-19] MEDS ORDERED: Doxycycline 200 MG in 0.9 % Sodium Chloride 250 ML IVPB ONE (22:00)
[2020-01-19] MEDS ORDERED: MethylPREDNISolone 40 MG/ML VIAL IVP ONE (22:00)
[2020-01-19] MEDS ORDERED: Doxycycline 200 MG in 0.9 % Sodium Chloride 100 ML IVPB ONE (22:00)
[2020-01-19 22:12] LABS: ABG Base Excess 4 mEq/L (-2 to 3); ABG HCO3 30 mEq/L (21-27); ABG Oxygen Saturation 98 % (95-98); ABG PCO2 48 mmHg (35-45); ABG PH 7.41 pH Units (7.32-7.45); ABG PO2 106 mmHg (85-104); ABG TCO2 32 mEq/L (20-26)
[2020-01-19] MEDS ORDERED: MethylPREDNISolone 40 MG/ML VIAL ONE (22:18)
[2020-01-19] MEDS ORDERED: methylPREDNISolone 125 MG/2 ML VIAL ONE (22:22)
[2020-01-19] MEDS: Nicotine 14 MG PATCH.TD24 TD SCH (22:23)
[2020-01-20 01:47] LABS: Bilirubin,Urine Negative (Negative); Blood,Urine Negative (Negative); Clarity,Urine Clear (Clear); Color,Urine Yellow (Yellow); Glucose,Urine (UA) 500 mg/dL (Normal); Ketones,Urine Negative (Negative); Leukocyte Esterase,Urine Negative (Negative); Nitrite,Urine Negative (Negative); PH,Urine 6.5 pH Units (5.0-8.0); Protein,Urine Negative (Neg-Trace); Specific Gravity,Urine > 1.030 (1.010-1.025); Urobilinogen,Urine Normal (Normal)
[2020-01-20] MEDS: Ipratropium Neb 0.5 MG NEBULIZER IH SCH ×6 (03:53→23:57)
[2020-01-20 04:09] LABS: Basophils % 0.1 %; Hematocrit 43.2 % (37.5-50.1); Hemoglobin 14.9 g/dL (12.9-16.9); Immature Granulocytes % 0.7 % (0-4); Lymphocytes # 1.3 K/mcL (0.6-4.6); Mean Corpuscular HGB Conc 34.5 g/dL (31.6-35.5); Mean Corpuscular Volume 92.7 fL (83.0-100.0); Mean Platelet Volume 9.3 fL (9.4-12.4); Monocytes # 0.1 K/mcL (0.0-1.3); Monocytes % 0.9 %; Neutrophils # 8.3 K/mcL (1.6-8.9); Platelet Count 289 K/mcL (140-400); Red Blood Count 4.66 M/mcL (4.19-5.50); Red Cell Distribution Width 12.4 % (11.5-14.5); Segmented Neutrophils % 85.3 %; White Blood Count 9.8 K/mcL (4.3-11.1)
[2020-01-20 04:22] LABS: Alanine Aminotransferase 22 Units/L (7-52); Albumin/Globulin Ratio 1.3 (1.1-2.2); Alkaline Phosphatase 71 Units/L (34-104); Aspartate Amino Transferase 13 Units/L (13-39); BUN/Creatinine Ratio 24 (6-26); Bilirubin,Total 0.5 mg/dL (0.3-1.0); Blood Urea Nitrogen 20 mg/dL (8-23); Calcium 9.4 mg/dL (8.6-10.3); Carbon Dioxide 26 mEq/L (23-29); Chloride 98 mEq/L (98-107); Globulin 3.1 g/dL (2.4-3.5); Glucose 276 mg/dL (70-105); Osmolality,Calculated 288 (280-300); Phosphorous 3.1 mg/dL (2.7-4.5); Potassium 4.3 mEq/L (3.5-5.1); Sodium 133 mEq/L (136-145); Total Protein 7.1 g/dL (6.4-8.9); eGFR For African Americans > 60 (> 60); eGFR For Non-African Americans > 60 (> 60)
[2020-01-20 08:28] LABS: Estimated Average Glucose 157 mg/dl
[2020-01-20] MEDS: Furosemide 40 MG/4 ML VIAL IVP SCH ×2 (08:49→20:49)
[2020-01-20] MEDS: Nicotine 14 MG PATCH.TD24 TD SCH (08:49)
[2020-01-20] MEDS: predniSONE 20 MG TABLET PO SCH (08:49)
[2020-01-20] MEDS: Doxycycline 100 MG in 0.9 % Sodium Chloride Mini Bag 100 ML IVPB SCH ×2 (08:50→20:48)
[2020-01-20] MEDS ORDERED: D5% in Water 1,000 ML IVC PRN (09:50)
[2020-01-20] MEDS ORDERED: *HR* Dextrose 50 % in Water (Syg) 50 ML SYRINGE IVP PRN (09:50)
[2020-01-20] MEDS ORDERED: Dextrose Gel 15 GM/37.5 ML TUBE PO PRN ×2 (09:50)
[2020-01-20] MEDS: Insulin LISPRO 300 UNITS/3 ML VIAL SQ SCH ×2 (11:10→16:38)
[2020-01-20] MEDS ORDERED: Pantoprazole 40 MG VIAL IVP ONE (19:51)
[2020-01-20] MEDS ORDERED: *HR* Promethazine 25 MG/ML VIAL IVP ONE (19:53)
[2020-01-20] MEDS: *HR* Heparin 5,000 UNIT/ML VIAL SQ SCH (20:49)
[2020-01-20] MEDS: Insulin DETEMIR 100 UNIT/ML X5UNITS SQ SCH (20:50)
[2020-01-21 03:00] LABS: BUN/Creatinine Ratio 24 (6-26); Blood Urea Nitrogen 28 mg/dL (8-23); Calcium 9.6 mg/dL (8.6-10.3); Carbon Dioxide 30 mEq/L (23-29); Chloride 96 mEq/L (98-107); Cholesterol 160 mg/dL (< 200); Glucose 182 mg/dL (70-105); HDL Cholesterol 54 mg/dL (40-59); LDL Cholesterol,Calculated 81 mg/dL (0-99); Magnesium 1.8 mg/dL (1.6-2.6); Osmolality,Calculated 290 (280-300); Potassium 3.8 mEq/L (3.5-5.1); Sodium 135 mEq/L (136-145); Triglycerides 126 mg/dL (< 150); eGFR For African Americans > 60 (> 60); eGFR For Non-African Americans > 60 (> 60)
[2020-01-21] MEDS: Ipratropium Neb 0.5 MG NEBULIZER IH SCH ×3 (04:05→10:51)
[2020-01-21] MEDS: *HR* Heparin 5,000 UNIT/ML VIAL SQ SCH (05:21)
[2020-01-21 07:01] VITALS: BP 121/77
[2020-01-21] MEDS: predniSONE 20 MG TABLET PO SCH (08:29)
[2020-01-21] MEDS: Nicotine 14 MG PATCH.TD24 TD SCH (08:29)
[2020-01-21] MEDS: Furosemide 40 MG/4 ML VIAL IVP SCH (08:29)
[2020-01-21] MEDS: Insulin LISPRO 300 UNITS/3 ML VIAL SQ SCH (08:30)
[2020-01-21] MEDS: Insulin DETEMIR 100 UNIT/ML X5UNITS SQ SCH (08:37)
[2020-01-21] MEDS ORDERED: Doxycycline 100 MG CAPSULE PO SCH (09:00)
== END 2020-01-21 12:23 | disposition home or self-care (01) ==
LOC: EMEROOARM 15:36 → 2ANU 15:36 → SUATTDRO 20:42 → 2ANU 20:55
PROVIDERS: ADMIT Internal Medicine; ATTEND Internal Medicine